=== PATIENT | female | born 2000 | race Two or more races ===

== ENCOUNTER 2024-11-16 10:35 | Emergency (ER) | payer MEDICAID, OTHER ==
[~2024-11-16] VITALS: Ht 149.9 cm; Wt 55.8 kg
[2024-11-16 14:45] VITALS: BP 116/70; TEMP 98; O2SAT 99
== END 2024-11-16 14:50 | disposition home or self-care (01) ==
LOC: ER 10:35
DX: J06.9 Acute upper respiratory infection, unspecified (principal); B97.89 Other viral agents as the cause of diseases classified elsewhere; Z20.822 Contact with and (suspected) exposure to COVID-19

== ENCOUNTER 2025-01-24 20:58 | Emergency (ER) | payer OTHER ==
[~2025-01-24] VITALS: Ht 144.8 cm; Wt 57.2 kg
[2025-01-24] MEDS: IV NS 0.9% 1,000 ML BAG IV ONE (22:00)
[2025-01-24] MEDS ORDERED: KETOROLAC TROMETHAMINE 15 MG/ML VIAL ONE (22:01)
[2025-01-24] MEDS ORDERED: diphenhydrAMINE HCL 50 MG/ML VIAL ONE (22:01)
[2025-01-24] MEDS: diphenhydrAMINE HCL 50 MG/ML VIAL IV ONE (22:12)
[2025-01-24 22:18] LABS: PREGNANCY TEST URINE QUAL NEGATIVE (NEGATIVE)
[2025-01-24 22:19] LABS: APPEARANCE,URINE CLEAR (CLEAR); BILIRUBIN,URINE Negative (NEGATIVE); BLOOD, URINE Negative Ery/uL (NEGATIVE); COLOR,URINE YELLOW (YELLOW); KETONES,URINE Negative (NEGATIVE); LEUKOCYTE ESTERASE ,URINE Negative (NEGATIVE); NITRITE, URINE NEGATIVE (NEGATIVE); PROTEIN,URINE Negative (NEGATIVE); UGLUCOSE Negative (NEGATIVE); UROBILINOGEN,URINE 0.2 EU/dL (0.2)
[2025-01-24] MEDS: KETOROLAC TROMETHAMINE 15 MG/ML VIAL IV ONE (22:26)
[2025-01-24 22:30] LABS: CALCIUM, SERUM 9.6 mg/dL (8.5-10.1); CREATININE 0.6 mg/dL (0.6-1.3); POTASSIUM 4.2 mmol/L (3.5-5.1)
[2025-01-24 22:31] LABS: BASOPHILS % (AUTO) 0.5 % (0.0-2.0); EOSINOPHILS # (AUTO) 0.2 K/uL (0.0-0.7); EOSINOPHILS % (AUTO) 2.3 % (0.0-6.0); HEMATOCRIT 38 % (33-45); HEMOGLOBIN 13.3 g/dL (11.5-14.8); LYMPHOCYTES # (AUTO) 3.6 K/uL (0.8-4.8); LYMPHOCYTES % (AUTO) 34.7 % (20.0-44.0); MEAN CORPUSCULAR HEMOGLOBIN 30 PG (26.0-33.0); MEAN CORPUSCULAR HGB CONC 35 g/dl (31.0-36.0); MEAN CORPUSCULAR VOLUME 88 fL (82-100); MONOCYTES # (AUTO) 0.9 K/uL (0.1-1.30); MONOCYTES % (AUTO) 9.2 % (2.0-12.0); NEUTROPHILS # (AUTO) 5.5 K/uL (1.8-8.9); NEUTROPHILS % (AUTO) 53.3 % (43.0-81.0); PLATELET COUNT (AUTO) 241 K/uL (150-450); RED BLOOD CELL COUNT(AUTO) 4.37 MIL/uL (4.0-5.2); RED CELL DISTRIBUTION WIDTH 13.8 % (11.5-15.0); WHITE BLOOD COUNT (AUTO) 10.3 K/uL (4.3-11.0)
[2025-01-24] MEDS ORDERED: METOCLOPRAMIDE HCL 10 MG/2 ML VIAL ONE (23:56)
[2025-01-24] MEDS ORDERED: ACETAMINOPHEN 325 MG TABLET ONE (23:57)
[2025-01-24] MEDS: METOCLOPRAMIDE HCL 10 MG/2 ML VIAL IV ONE (23:58)
[2025-01-24] MEDS: ACETAMINOPHEN 325 MG TABLET PO ONE (23:58)
[2025-01-25] MEDS ORDERED: POLY119P3 PO (01:07)
[2025-01-25] MEDS ORDERED: SENN8.6T19 PO (01:07)
[2025-01-25] MEDS ORDERED: METO-295 PO (01:08)
[2025-01-25 01:20] VITALS: BP 119/75; TEMP 98; O2SAT 100
== END 2025-01-25 01:21 | disposition home or self-care (01) ==
LOC: ER 21:02
DX: K59.00 Constipation, unspecified (principal); G44.209 Tension-type headache, unspecified, not intractable; G47.00 Insomnia, unspecified
CPT/HCPCS: 99285; 70450; 96374; 96375; 96361; 74176; 85025; 80048; 84703; 81003; 36415; J1885; J1200; J2765; J7030